=== PATIENT | male | born 1930 | race Caucasian/White ===

== ENCOUNTER 2019-08-04 15:25 | Emergency (ER) | payer MEDICARE ==
[~2019-08-04] VITALS: Ht 172.7 cm; Wt 96.4 kg
--- NOTE | 2019-08-04 16:43 | REP ---
Left shoulder: Three views. History: Pain. Three views of the left shoulder demonstrate normal alignment of the glenohumeral and acromioclavicular joints. No fracture or subluxation is seen. There is mild diffuse osteopenia. There are old healed fractures of the left lateral fourth and fifth ribs. Periarticular soft tissues are unremarkable. Impression: Diffuse osteopenia. No acute bony abnormality. Electronically Signed by Maxx Aguilera MD 08/04/2019 05:08 P
[2019-08-04] MEDS ORDERED: METAL LOCK LOOP XX ONE (18:01)
[2019-08-04] MEDS ORDERED: KETO10TAB PO (18:04)
[2019-08-04 18:15] VITALS: BP 120/58
[2019-08-04] MEDS ORDERED: KETOROLAC TROMETHAMINE 10 MG TAB PO ONE (18:15)
== END 2019-08-04 18:40 | disposition home or self-care (01) ==
LOC: EDBD 15:25 → M ED 15:25
DX: M25.512 Pain in left shoulder (principal); J44.9 Chronic obstructive pulmonary disease, unspecified; M85.9 Disorder of bone density and structure, unspecified